=== PATIENT | female | born 1970 | race Caucasian/White ===

== ENCOUNTER 2025-03-28 21:43 | Emergency (ER) | payer SELFPAY ==
[2025-03-28 22:23] LABS: Hematocrit 40.8 % (37.0-47.0); Hemoglobin 13.6 g/dL (12.0-16.0); Mean Corp Hgb Conc. 33.3 g/dL (33.0-37.0); Mean Corpuscular Volume 86.1 fL (81.0-99.0); Nucleated Red Blood Cells % 0 %; Platelet Count 272 10^3/uL (130-400); Red Cell Dist. Width 13.5 % (11.5-14.5)
[2025-03-28 22:37] LABS: ALT (SGPT) 33 U/L (0-35); AST (SGOT) 25 U/L (14-36); Albumin 4.5 g/dl (3.5-5.0); Alkaline Phosphatase 93 U/L (38-126); Blood Urea Nitrogen 13 mg/dl (7-17); Calcium 9.9 mg/dl (8.4-10.2); Carbon Dioxide 30 mmol/L (22-30); Chloride 101 mmol/L (98-107); Glucose 108 mg/dl (70-99); Potassium 4.7 mmol/L (3.5-5.1); Sodium 137 mmol/L (135-145); Total Protein 7.2 g/dl (6.3-8.2); eGFR > 60.00
[2025-03-29 02:05] VITALS: BP 158/75
[2025-03-29 03:00] VITALS: BP 146/76
--- NOTE | 2025-03-29 03:46 | ED.GENMED ---
History of Present Illness
General
Chief Complaint: Skin Problem
Source: patient and spouse
Exam Limitations: none
Time Seen by Provider: 03/29/25 03:24
Nursing documentation reviewed up to this point in time: agreed with
History of Present Illness
History of Present Illness:
Note:
CHIEF COMPLAINT(S)
Concerns about wound healing post-port removal, with noted drainage and discoloration.
HISTORY OF PRESENT ILLNESS
The patient is a 54-year-old female who presents with concerns regarding a wound from a recently removed intrathecal pain pump. The pump was removed four days ago on due to a suspected infection after being in place for one month. The
patient reports that the wound initially appeared to be healing but has since started draining with a greenish tint. The patient denies experiencing any fever. The patient is currently on antibiotics, specifically Bactrim. Upon examination, the
wound displayed some pinkness but lacked any signs of pronounced redness or cellulitis. Laboratory results were reviewed, showing a normal white blood cell count and normal inflammatory markers, which the patient found reassuring. The patient
described the wound as having a slightly purulent appearance but was informed that the drainage could be part of normal healing. The patient confirmed she was instructed to keep the wound open without applying any topical substances. The cruz are
scheduled to be removed during a follow-up appointment next week.
PHYSICAL EXAM
General: Alert, no acute distress.
Skin: Warm and dry, normal color. There is a vertical lower lumbar surgical incision approximately 4 cm in length with multiple cruz intact. There is also a left lower lumbar horizontal incision approximately 6 cm in length with multiple
cruz intact. Both of these incisions are dry, well-approximated. There is very minimal pinkness to the incision but no erythema, no drainage, no soft tissue swelling. There is very minimal local tenderness to palpation but no fluctuance nor
palpable heat.
Head: Normocephalic, atraumatic.
Neck: Supple, trachea midline.
Eye Ears, nose, mouth and throat: Oral mucosa moist.
Cardiovascular: Normal peripheral perfusion, No edema.
Respiratory: Respirations are non-labored.
Gastrointestinal : Abdomen nondistended
Back: Normal range of motion, Normal alignment.
Musculoskeletal: Normal range of motion, normal strength.
Neurological: Alert and oriented to person, place, time, and situation, No focal neurological deficit observed.
Psychiatric: Cooperative, appropriate mood & affect.
DIFFERENTIAL DIAGNOSIS
The Differential Diagnosis includes, in no particular order and is not limited to:
1. Surgical site infection
2. Normal wound healing process
3. Granuloma formation
4. Non-infectious inflammatory response
5. Seroma or hematoma at the wound site
6. Allergic reaction to cruz or suture material
7. Localized skin irritation
8. Bacterial skin infection
9. Fungal infection at the site
10. Lymphatic drainage issue at the wound site.
Clinical course:
Patient remains afebrile and reports no recent fever.
Labs are all unremarkable, within normal limits. Normal white blood cell count. Normal lactic acid.
Surgical sites overall are well in appearance. No evidence of infection. No drainage.
PLAN
1. Continue current antibiotic regimen (Bactrim) as previously prescribed.
2. Monitor the wound for any changes or increase in discharge, redness, or signs of infection.
3. Keep the wound open and do not apply any topical ointments or lotions.
4. Follow up with the physician next week for staple removal.
5. Review lab results, which will also be available on the patient�s instructions.
Past History
Past History
ED Past Medical History: HTN and Other (Chronic regional pain syndrome)
ED Past Surgical History: and Orthopedic
Social History
Tobacco: Non-smoker
Alcohol: None
Personal:
Living: with family
Family History
Family History: Other (Noncontributory)
Phy Exam
Physical Exam
Physical Exam:
As above
Course
Orders/Labs/Results
Orders:
Orders
03/28/25 22:13
Comprehensive Metabolic Panel Urgent
Blood Culture Urgent
MICHELLE Source: Blood/Venous
Specimen Description:
03/28/25 22:14
Complete Blood Count/With Diff Urgent
Lactic Acid Urgent
Abnormal Lab Results
03/28/25
22:13
Glucose 108 H mg/dl
(70-99)
03/28/25 22:14
03/28/25 22:13
Vital Signs
Initial and Last Documented VS:
Initial Vital Signs
Temp Pulse Resp Pulse Ox
97.8 F 77 20 96
03/28/25 22:00 03/28/25 22:00 03/28/25 22:00 03/28/25 22:00
Last Documented Vital Signs
Temp Pulse Resp BP Pulse Ox
97.8 F 69 17 146/76 96
03/28/25 22:00 03/29/25 03:00 03/29/25 03:00 03/29/25 03:00 03/29/25 03:00
MDM/Problems Addressed
Differential Diagnosis Includes:
As above
*Pulse Oximetry
SaO2: 96
Oxygen Mode of Delivery: Room air
Patient hypoxic: no
*Critical Care Note
Total Time (30-74mins, 75-104mins- exclusive of procedures): Not Applicable
ED Attending Note
-
Portions of this chart may have been created with voice recognition software.� Occasional wrong word or��sound alike� substitutions may have occurred due to the inherent limitations of voice recognition software.
Discharge Plan
Departure
Patient Disposition: Home (Routine Discharge)
Date of Disposition: 03/29/25
Time of Disposition: 03:47
Patient with high blood pressure during this ER visit?: No
Condition: Good
Discharge Problem:
Encounter for postoperative wound check
Instructions: Caring for a closed surgical wound
Activity Restrictions/Additional Instructions:
Continue Bactrim until finished.
Follow-up with your surgeon this week for recheck.
Interventions
Interventions:
*Risk Screen - Suicide Last Done: 03/29/25 02:22
*General Assessment Last Done: 03/28/25 22:00
*Neglect/Abuse Screening Last Done: 03/29/25 02:22
ED-Skin Assessment Last Done: 03/29/25 02:27
Discharge Date and Time
Print Language: ICELANDIC
== END 2025-03-29 04:05 | disposition home or self-care (01) ==
LOC: EMR 21:43
PROVIDERS: Student in an Organized Health Care Education/Training Program; EMERGENCY PHYSICIAN Emergency Medicine; FAMILY PHYSICIAN Internal Medicine
DX: Z48.89 Encounter for other specified surgical aftercare (principal); I10 Essential (primary) hypertension
CPT/HCPCS: 99283; 80053; 83605; 85025; 87040